=== PATIENT | female | born 1990 | race Caucasian/White ===

== ENCOUNTER 2020-06-19 09:39 | Outpatient (CLI) | payer OTHER, SELFPAY ==
--- NOTE | ~2020-06-19 | XR_ITS ---
EXAMINATION: XR foot LT min 3V DATE: 06/19/2020 09:59 INDICATION: Left great toe injury. TECHNIQUE: 4 views of left foot were obtained. COMPARISON: None. FINDINGS: Bone alignment is normal. No fracture. Joint spaces are well maintained. IMPRESSION: 1. Normal left foot. Reviewed, dictated and finalized at location A. FURNISHINGS SALES REPRESENTATIVE IMPRESSION: 1. Normal left foot.
== END 2020-06-19 09:40 | disposition home or self-care (01) ==
LOC: CHSIMG 09:41
PROVIDERS: PCP Family Medicine; Visit Provider Family Medicine
DX: S99.922A Unspecified injury of left foot, initial encounter (principal)
CPT/HCPCS: 73630

== ENCOUNTER 2020-07-06 13:10 | Outpatient (CLI) | payer MEDICAID, OTHER, SELFPAY ==
--- NOTE | 2020-07-08 14:42 | WPDHOLTEREM ---
Holter/Event Monitor Holter/Event Monitor Date of procedure: 07/06/20 Diagnosis: Palpitations Conclusion: 1. 24 hour holter monitor on 07/06/20. 2. Underlying rhythm is sinus rhythm. HR range 52-158 bpm; average HR 93 bpm. 3. There is 1 premature supraventricular complex. No supraventricular tachycardia. 4. There are 173 premature ventricular complexes. No ventricular tachycardia. 5. No sinoatrial or atrioventricular blocks. No significant pauses greater than 2 seconds. 6. Patient reports symptoms of feeling anxious and stressed which demonstrate sinus rhythm, HR range 72-90 bpm.
== END 2020-07-06 13:11 | disposition home or self-care (01) ==
PROVIDERS: PCP Family Medicine; Visit Provider Family Medicine
DX: R00.2 Palpitations (principal)
CPT/HCPCS: 93225; 93226

== ENCOUNTER 2024-08-26 15:24 | Outpatient (CLI) | payer OTHER, SELFPAY ==
[2024-08-26 15:51] LABS: Basophils Absolute Auto 0.02 K/mm3 (0.00-0.10); Basophils Percent Auto 0.3 % (0.0-1.0); Eosinophils Absolute Auto 0.07 K/mm3 (0.02-0.50); Eosinophils Percent Auto 0.9 % (1.0-6.0); Hematocrit 38.6 % (35.0-49.0); Hemoglobin 12.5 g/dL (12.0-15.0); Immature Granulocyte Absolute 0.01 K/mm3 (0.00-0.00); Immature Granulocyte Percent A 0.1 % (0.0-0.0); Lymphocytes Absolute Auto 1.58 K/mm3 (1.10-4.50); Mean Corpuscular HGB Conc 32.4 g/dL (32-36); Mean Corpuscular Hemoglobin 28.1 pg (27.0-31.0); Mean Corpuscular Volume 86.7 fL (78.0-102.0); Mean Platelet Volume 9.9 fl (9.2-11.8); Monocytes Absolute Auto 0.46 K/mm3 (0.10-0.90); Monocytes Percent Auto 6.1 % (2.0-11.0); Neutrophils Absolute Auto 5.39 K/mm3 (1.70-7.20); Neutrophils Percent Auto 71.6 % (50.0-70.0); Platelet Count Result 221 K/mm3 (150-420); Red Blood Count 4.45 M/mm3 (4.20-5.40); Red Cell Distribution Width 12.9 % (11.6-14.4); White Blood Count 7.5 K/mm3 (4.8-10.8)
[2024-08-26 16:08] LABS: Alanine Aminotransferase 15 U/L (14-59); Albumin Level 4.2 g/dL (3.4-5.0); Alkaline Phosphatase 52 U/L (46-116); Anion Gap 10 mmol/L (4-12); Aspartate Amino Transferase 12 U/L (15-37); Bilirubin,Total 0.5 mg/dL (0.00-1.00); Blood Urea Nitrogen 14 mg/dL (7-18); Calcium 8.7 mg/dL (8.5-10.1); Carbon Dioxide 27 mmol/L (21-32); Chloride 102 mmol/L (98-108); Cholesterol 222 mg/dL (0-200); Estimated Glomerular Filt Rate > 60; Glucose 95 mg/dL (70-99); HDL Direct 71 mg/dL (40-60); LDL Cholesterol Calculated 140 mg/dL (<130); Osmolality Calculated 288 mOsm/kg (285-295); Potassium 4.5 mmol/L (3.5-5.1); Sodium 139 mmol/L (136-145); Total Protein 7.1 g/dL (6.4-8.2); Triglycerides 55 mg/dL (0-150)
[2024-08-26 16:27] LABS: Thyroid Stimulating Hormone Reflex 0.92 u/IU/mL (0.36-3.74)
[2024-08-26 16:37] LABS: Hemoglobin A1C 5.1 % (<5.7)
== END 2024-08-26 15:25 | disposition home or self-care (01) ==
PROVIDERS: PCP Nurse Practitioner Family; Visit Provider Nurse Practitioner Family
DX: Z00.00 Encounter for general adult medical examination without abnormal findings (principal)
CPT/HCPCS: 36415; 80053; 80061; 83036; 84443; 85025

== ENCOUNTER 2025-02-18 10:07 | Emergency (ER) | payer OTHER, SELFPAY ==
--- NOTE | ~2025-02-18 | US_ITS ---
EXAM: US transvaginal - 02/18/2025 10:13 CDT History: 34 years old Female with Cramping and heavy menstrual bleeding Comparison: None available. Technique Real time scanning of the pelvis was performed. Findings The uterus measures 10.0 x 5.2 x 4.2 cm. 2.0 x 2.5 x 3.0 cm hypoechoic mass in the fundus of the uter us, likely uterine fibroid. Endometrium is grossly unremarkable. The endometrial stripe measures 4 m m. The right ovary measures 4.2 x 2.2 x 2.4 cm. The left ovary measures 2.5 x 2.0 x 1.6 cm. Both ovaries appear grossly unremarkable and have intact blood flow. There is no significant fluid in the cul-de-sac. Impression: Probable 3.0 cm uterine fibroid. Reviewed, dictated and finalized at location A. Impression: Probable 3.0 cm uterine fibroid.
[2025-02-18 10:09] VITALS: BP 136/89; PULSE 84; RESP 18; TEMP 36.4; O2SAT 99
--- OUTSIDE RECORDS SUMMARY | 2025-02-18 10:13 | XMS_ITS | Encounter Summary ---
Author Organization [facility] Address [facility] [place] [address] Care Team Providers Care Boatbuilder Supervisor Name Role Phone Luis Reeves MD Primary Care Provider Eileen Robles MD Unavailable Unavailabl e Domo Reddy MD Unavailable Unava ilable Encounter Details Date Type Department Care Team (Late st Contact Info) Description 01/17/2019 Abstract SFL CONVERSION [address] [place] [address] , Generic ConversionMD Social History Tobacco Use Types Packs/Day Years Used Date Smoking Tobacco: Never Assessed Comments Unknown Sex and Gender Information Value Date Recorded Sex Assigned at Female 04/26/2021 4:36 AM CDT Legal Sex Female 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 NON PROFIT Gender Identity Female 04/26/2021 4:36 AM CDT Sexual Orientation Straight 04/26/2021 4: 36 AM CDT documented as of this encounter Plan of Treatment Not on file documented as of this encounter Visit Diagnoses Not on filedocumented in this encounter Additional Health Concerns Infection Onset Date Last Indicated Resolved Time COVID-19 Rule Out 04/24/2021 04/24/2021 04/24/2021 7:03 PM CDT documented as of this encounter Care Teams Boatbuilder Supervisor Relationship Specialty Start Date End Date Luis Reeves MD [address] [place] [phone] PCP - General FAMILY PRACTICE 10/20/19 Eileen Robles MD [address] [place] [phone] Consulting Physician CARDIOVASCULAR DISEASE 08/30/20 Domo Reddy MD [address] [place] [address] EP Shipbuilding Draftsperson CARDIOVASCULAR DISEASE 09/07/20 documented as of this encounter
--- OUTSIDE RECORDS SUMMARY | 2025-02-18 10:13 | XMS_ITS | Clinical Summary ---
Author Organization [facility] Address [facility] [place] [address] Care Team Providers Care Mortgage Protection Sales Name Role Phone Luis Reeves MD Primary Care Provider Eileen Robles MD Unavailable Unavailabl e Domo Reddy MD Unavailable Unava ilable Allergies No known active allergies Medications FLUoxetine 20 MG capsule Take 1 capsule by mouth daily. 08/08/2020 Active omeprazole 40 MG capsule Take 1 capsule by mouth daily. 08/06/2020 Active Vit-DSS-Fe Fum-FA ( 19) 29-1 MG Tab Take 1 tablet by mouth daily. Active Active Problems Problem Noted Date Diagnosed Date Prolonged latent phase of labor ([facility]) 2020 Term ([facility]) 04/27/2021 Labor and delivery, indication for care ([facility] ) 04/26/2021 Tachycardia 09/05/2020 Palpitations Anxiety and depression Resolved Problems Problem Noted Date Diagnosed Date Resolved Date 2 para 2 09/12/2020 Encounters Date Type Department Care Team Description 02/15/2025 12:53 PM CDT - 02/15/2025 11:59 PM CDT Hospital Encounter [facility] [address] [place] [address] Nasir Thompson MD Discharge Disposition: Home or Self Care (Routine Discharge) from Last 3 Months Family History Medical History Relation Comments Hypertension Father addicted to pain med Father alcholic/cirrhosis Father depression Father precancerous colon polyps Father Lung Cancer Maternal Grandfather Depression Sister Relation Status Comments Father Maternal Grandfather Sister Social History Tobacco Use Types Packs/Day Years Used Date Smoking Tobacco: Never Smokeless Tobacco: Never Alcohol Use Standard Drinks/Week Comments Not Currently 0 (1 standard drink = 0.6 oz pur e alcohol) Humiliation, Afraid, Rape, and Kick questionnair e Answer Date Recorded Within the last year, have y ou been afraid of your partner or ex-partner? No 04/26/2021 Within the last year, have y ou been humiliated or emotionally abused in other ways by your partner or ex-partner? No Within the last year, have y ou been kicked, hit, slapped, or otherwise physically hurt by your partner or ex-partner? No 04/26/2021 Within the last year, have y ou been raped or forced to have any kind of sexual activity by your partner or ex-partner? No 04/26/2021 Social Connection and Isolation Panel [NHANES] A nswer Date Recorded In a typical week, how many times do you talk on the phone with family, friends, or neighbors? Twice a week 04/26/20 How often do you get togethe r with friends or relatives? Once a week 04/26/2021 How often do you attend chur ch or islam services? Never 04/26/2021 Do you belong to any clubs o r organizations such as episcopal groups, unions, fraternal or athletic groups, or school groups? No 04/26/2021 How often do you attend meet ings of the clubs or organizations you belong to? Never 04/26/2021 Are you , , di vorced, , never , or living with a partner? Living with partner 04/26/2021 AUDIT-C Answer Date Recorded Q1: How often do you have a drink containing alc ohol? Never 04/26/2021 Average Number of Drinks Not on file 021 Q3: How often do you have si x or more drinks on one occasion? Never 04/26/2021 Overall Financial Resource Strain (CARDIA) Answe r Date Recorded How hard is it for you to pa y for the very basics like food, housing, medical care, and heating? Not hard at all 04/26/2021 PHQ-2 Answer Date Recorded PHQ-2 Score - If the patient scores above 3, please move on to questions 3-9 0 04/26/2021 [place] of Occupat ional Health - Occupational Stress Questionnaire Answer Date Recorded Do you feel stress - tense, restless, nervous, or anxious, or unable to sleep at night because your mind is troubled all the time - these days? Not at all 04/26/2021 Exercise Vital Sign Answer Date Recorde d On average, how many days pe r week do you engage in moderate to strenuous exercise (like a brisk walk)? 0 days 04/26/2021 On average, how many minutes do you engage in exercise at this level? 0 min 04/26/2021 Hunger Vital Sign Answer Date Recorded Within the past 12 months, y ou worried that your food would run out before you got the money to buy more. Never true 04/26/20 21 Within the past 12 months, t he food you bought just didn't last and you didn't have money to get more. Never true 04/26/2021 PRAPARE - Transportation Answer Date Re corded In the past 12 months, has l ack of transportation kept you from medical appointments or from getting medications? No 04/12 In the past 12 months, has l ack of transportation kept you from meetings, work, or from getting things needed for daily living? No 04/26/2021 Housing Stability Vital Sign Answer Frank e Recorded In the last 12 months, was t here a time when you were not able to pay the mortgage or rent on time? No 04/26/2021 In the last 12 months, how many places have you lived? 1 04/26/2021 In the last 12 months, was t here a time when you did not have a steady place to sleep or slept in a usp (including now)? 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 Not on file Not on file Last Filed Vital Signs Vital Sign Reading Time Taken Comments Blood Pressure 121/67 04/29/2021 4:00 PM CDT Pulse 102 04/29/2021 4:00 PM CDT Temperature 36.6 C (97.9 F) 04/29/2021 4:00 PM CDT Respiratory Rate 18 04/29/2021 4:00 PM CDT Oxygen Saturation 98% 04/26/2021 3:23 PM CDT Inhaled Oxygen Concentration - - Weight 86.2 kg (190 lb) 04/26/2021 3:00 AM CDT Height 170.2 cm (5' 7) 04/26/2021 3:00 AM CDT Body Mass Index 29.76 04/26/2021 3:00 AM CDT Plan of Treatment Health Maintenance Due Date Last Done Comments Cervical Cancer Screening Pap Smear (Age 30 to 64) Every 3 Years 1988 Annual Physical 1991 Hepatitis C 2006 DTaP, Tdap and Td Vaccines (1 - Tdap) 2007 01/13/1993, 04/23/1990, 03/20/1989, Additional history exists Hepatitis B Vaccines (1 of 3 - 19+ 3-dose series) 2007 Cervical Cancer Screening Pap with HPV Testing (Age 30 to 64) Every 5 Years 2018 Cervical Cancer Screening with HPV 2018 COVID-19 Vaccine ( season) 2024 HPV Vaccines Aged Out No longer eligi ble based on patient's age to complete this topic Meningococcal B Vaccine Aged Out No l onger eligible based on patient's age to complete this topic Meningococcal Vaccine Aged Out No venkata daisy eligible based on patient's age to complete this topic Pneumococcal Vaccine: Pediatrics (0 to 5 Years) and At-Risk Patients (6 to 49 Years) Aged Out No longer eligible based on patient's age to complete this topic RSV Immunizations Under 20 Months Aged Out No longer eligible based on patient's age to complete this topic Insurance AETNA Advance Directives * Full Code (Latest Code Status on File) Date Activated Date Inactivated Comments 04/26/2021 5:26 AM 04/27/2021 4:44 PM Care Teams Mortgage Protection Sales Relationship Specialty Start Date End Date Luis Reeves MD [address] [place] [address] PCP - General FAMILY PRACTICE 10/20/19 [place] [address] [place] [phone] Consulting Physician CARDIOVASCULAR DISEASE 08/30/20 [place] [address] [phone] EP Sign Designer CARDIOVASCULAR DISEASE 09/07/20
[2025-02-18 11:00] VITALS: BP 106/79; PULSE 68; RESP 17; O2SAT 98
--- OUTSIDE RECORDS SUMMARY | 2025-02-18 11:18 | XMS_ITS | Clinical Summary ---
Author Organization [facility] Address [facility] [place] [address] Care Team Providers Care Surgical Corsetier Name Role Phone Luis Reeves MD Primary [...] Diagnosed Date Prolonged latent phase of labor ([facility]) 2020 Term ([facility]) 04/27/2021 Labor and delivery, indication for care ([facility] ) 04/26/2021 Tachycardia 09/05/2020 Palpitations Anxiety and depression Resolved Problems Problem Noted Date Diagnosed Date Resolved Date 2 para 2 09/12/2020 Encounters Date Type Department Care Team Description 02/15/2025 12:53 PM CDT - 02/15/2025 11:59 PM CDT Hospital Encounter [facility] [address] [place] [address] Nasir Thompson MD Discharge Disposition: Home or [...] often do you attend chur ch or tenriism services? Never 04/26/2021 Do you belong to any clubs o r organizations such as cheondoism groups, unions, fraternal or athletic groups, or [...] move on to questions 3-9 0 04/26/2021 [place] of Occupat ional Health - Occupational Stress [...] place to sleep or slept in a fpc (including now)? 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
--- OUTSIDE RECORDS SUMMARY | 2025-02-18 11:19 | XMS_ITS | Encounter Summary ---
Author Organization [facility] Address [facility] [place] [address] Care Team Providers Care Cyanide Pot Hardener Name Role Phone Luis Reeves MD Primary Care Provider Eileen Robles MD Unavailable Unavailabl e Domo Reddy MD Unavailable Unava ilable Encounter Details Date Type Department Care Team (Late st Contact Info) Description 01/17/2019 Abstract SFL CONVERSION [address] [place] [address] , Generic ConversionMD Social History Tobacco Use Types Packs/Day Years Used Date Smoking Tobacco: Never Assessed Comments Unknown Sex and Gender Information Value Date Recorded Sex Assigned at Female 04/26/2021 4:36 AM CDT Legal Sex 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
[2025-02-18 11:22] LABS: Hematocrit 34.3 % (35.0-49.0); Hemoglobin 10.9 g/dL (12.0-15.0); Immature Granulocyte Percent A 0.2 % (0.0-0.0); Lymphocytes Absolute Auto 1.21 K/mm3 (1.10-4.50); Mean Corpuscular HGB Conc 31.8 g/dL (32-36); Mean Corpuscular Hemoglobin 28.2 pg (27.0-31.0); Mean Corpuscular Volume 88.9 fL (78.0-102.0); Nucleated Red Blood Cells Absolute Auto 0.00 K/mm3 (0.00-0.00); Nucleated Red Blood Cells Perc 0.0 % (0-0.0); Platelet Count Result 216 K/mm3 (150-420); Red Blood Count 3.86 M/mm3 (4.20-5.40); White Blood Count 4.6 K/mm3 (4.8-10.8)
--- NOTE | 2025-02-18 11:37 | ED.FEMALEGU ---
HPI - Female Genitourinary General Chief complaint: Vaginal Bleeding Stated complaint: heavy periods Time Seen by Provider: 02/18/25 10:13 Source: patient Mode of arrival: ambulatory Limitations: no limitations History of Present Illness HPI Narrative: this is a 34-year-old female recently seen by her roll line operator and had a cervical biopsy and subsequent to that has been having heavy vaginal bleeding for the last few hours. No other symptoms no abdominal pain no dysuria no flank pain no fever chills. MD elicited complaint: vaginal bleeding Related Data Allergies Allergy/AdvReac Type Severity Reaction Status Date / Time No Known Allergies Allergy Verified 09/04/24 14:20 Review of Systems Review of Systems: All systems reviewed & are unremarkable except as noted in HPI and below PMFSH Past Medical History Medical History Anxiety and depression Palpitations Surgical History Surgical History Hx of tonsillectomy 10 years prior 24 approximately Family History Family History Grandparent Stomach cancer Father Liver cirrhosis, alcoholic Grandparent Alzheimer disease Social History Social History Social History: Current vaper - 4 years ago. 5% nicotine - equates to PPD Former smoker - started at 12 years old, quit during pregnancies, 15 years total (1 PPD). Smoking status: Former smoker (currently vaping) Tobacco type: e-cigarettes/vaping Alcohol intake: current Alcohol use details: 2-6 drinks per week Substance use: current Substance use type: marijuana Last use: last use last night Exam Const: General: healthy appearing and no acute distress Nutritional Appearance: well nourished Orientation/consciousness: patient oriented x3 Limitations: no limitations Chest: Chest palpation & inspection: normal inspection of the chest Resp: Effort & Inspection: normal respiratory effort Auscultation: clear to auscultation bilaterally Cardio: Rate: regular rate Rhythm: regular rhythm GI: GI Palp: Yes Soft to palpation Auscultation: normal bowel sounds Urinary Catheter: Urinary Catheter: patent and draining Back/Spine/Pelvis: Back: no CVA tenderness Skin: General skin exam: normal color Rashes: no rashes Neuro: General: patient oriented x3 Cranial nerves: Yes Nystagmus not present Course Course Emergency Course: Heavy vaginal bleeding, ultrasound performed shows a uterine fibroid, blood counts no significant abnormalities will send patient home with some Premarin for dysfunctional uterine bleeding with advice to follow with paralegal legal secretary within the next 3 to 5 days. Vital Signs Vital signs: Vital Signs Temperature 36.4 C L 02/18/25 10:09 Pulse Rate 84 02/18/25 10:09 Respiratory Rate 18 02/18/25 10:09 Blood Pressure 136/89 02/18/25 10:09 Pulse Oximetry 99 02/18/25 10:09 Oxygen Delivery Room Air 02/18/25 10:09 Temperature 36.4 C L 02/18/25 10:09 Pulse Rate 84 02/18/25 10:09 Respiratory Rate 18 02/18/25 10:09 Blood Pressure 136/89 02/18/25 10:09 Pulse Oximetry 99 02/18/25 10:09 Oxygen Delivery Room Air 02/18/25 10:09 MDM - Female Genitourinary Lab Data 02/18/25 11:18 02/18/25 11:18 Labs: Lab Results 02/18/25 Range/Units 11:18 WBC 4.6 L (4.8-10.8) K/mm3 RBC 3.86 L (4.20-5.40) M/mm3 Hgb 10.9 L (12.0-15.0) g/dL Hct 34.3 L (35.0-49.0) % MCV 88.9 (78.0-102.0) fL MCH 28.2 (27.0-31.0) pg MCHC 31.8 L (32-36) g/dL RDW 13.6 (11.6-14.4) % Plt Count 216 (150-420) K/mm3 MPV 9.8 (9.2-11.8) fl Immature Gran % (Auto) 0.2 H (0.0-0.0) % Neut % (Auto) 65.2 (50.0-70.0) % Lymph % (Auto) 26.5 (18.0-42.0) % Tift % (Auto) 5.7 (2.0-11.0) % Eos % (Auto) 2.0 (1.0-6.0) % Baso % (Auto) 0.4 (0.0-1.0) % Lymph # (Auto) 1.21 (1.10-4.50) K/mm3 Tift # (Auto) 0.26 (0.10-0.90) K/mm3 Eos # (Auto) 0.09 (0.02-0.50) K/mm3 Baso # (Auto) 0.02 (0.00-0.10) K/mm3 Abs Immat Gran (auto) 0.01 H (0.00-0.00) K/mm3 Absolute Neuts (auto) 2.97 (1.70-7.20) K/mm3 Absolute Nucleated RBC 0.00 (0.00-0.00) K/mm3 Nucleated RBC % 0.0 (0-0.0) % Sodium Pending Potassium Pending Chloride Pending Carbon Dioxide Pending Anion Gap Pending BUN Pending Creatinine Pending Estim Creat Clear Calc Pending Estimated GFR Pending Glucose Pending Calculated Osmolality Pending Calcium Pending Total Bilirubin Pending AST Pending ALT Pending Alkaline Phosphatase Pending Total Protein Pending Albumin Pending Critical Care Time Critical Care Time Critical Care Time: No Discharge Plan Discharge Clinical Impression: DUB (dysfunctional uterine bleeding) Patient Disposition: Home Condition: Stable Instructions: Antibiotic Form, Abnormal (Dysfunctional) Uterine Bleeding (ED) Additional Instructions: advised patient to take medication as prescribed and follow with paralegal legal secretary within the next 3 to 5 days for further evaluation and treatment. Patient Language: Peruvian Prescriptions: No Action nicotine 21 mg/24 hr patch 24 hour 1 patch transdermal DAILY Qty: 28 0RF Rx Instructions: STEP I nicotine 14 mg/24 hr patch 24 hour 1 patch transdermal DAILY Qty: 14 0RF Rx Instructions: STEP II nicotine 7 mg/24 hr patch 24 hour 1 patch transdermal DAILY Qty: 14 0RF nicotine (polacrilex) 2 mg gum 2 mg buccal Q2H PRN (Reason: nicotine cravings) Qty: 100 0RF fluticasone propionate [Allergy Relief (fluticasone)] 50 mcg/actuation spray,suspension 1 spray intranasal DAILY PRN (Reason: nasal congestion) Qty: 11.1 2RF Rx Instructions: administer into each nostril cyclobenzaprine 5 mg tablet 5 mg PO QHS PRN (Reason: muscle spasm) Qty: 60 0RF sertraline 50 mg tablet 50 mg PO DAILY 90 Days Qty: 90 0RF lorazepam 0.5 mg tablet 0.5 mg PO QHS PRN (Reason: anxiety) Qty: 20 0RF omeprazole 40 mg capsule,delayed release(DR/EC) 40 mg PO DAILY Qty: 30 2RF propranolol 20 mg tablet See Rx Instructions .ROUTE .COMPLEX Qty: 60 2RF Dose Instruction: TAKE ONE TABLET BY MOUTH EVERY TWELVE HOURS Rx Instructions: TAKE ONE TABLET BY MOUTH EVERY TWELVE HOURS Follow-up/Referrals: Sharonda Martel APRN [Primary Care Provider] -
[2025-02-18 11:43] LABS: Alanine Aminotransferase 12 U/L (6-35); Albumin Level 4.3 g/dL (3.5-5.1); Alkaline Phosphatase 49 U/L (38-126); Anion Gap 2 mmol/L (4-12); Aspartate Amino Transferase 24 U/L (14-36); Bilirubin,Total 0.5 mg/dL (0.2-1.3); Blood Urea Nitrogen 10 mg/dL (7-17); Calcium 8.4 mg/dL (8.4-10.2); Carbon Dioxide 28 mmol/L (22-30); Chloride 107 mmol/L (98-107); Estimated CRCL calculation 86 ml/min; Estimated Glomerular Filt Rate > 60; Glucose 95 mg/dL (65-110); Osmolality Calculated 283 mOsm/kg (285-295); Potassium 4.2 mmol/L (3.4-5.0); Sodium 137 mmol/L (137-145); Total Protein 7.1 g/dL (6.3-8.2)
[2025-02-18 12:02] VITALS: BP 104/72; PULSE 63; RESP 18; TEMP 36.6; O2SAT 98
== END 2025-02-18 12:02 | disposition home or self-care (01) ==
PROVIDERS: Emergency Provider Emergency Medicine; PCP Nurse Practitioner Family
DX: N93.8 Other specified abnormal uterine and vaginal bleeding (principal); Z87.891 Personal history of nicotine dependence
CPT/HCPCS: 36415; 76830; 80053; 85025; 99284